=== PATIENT | male | born 1955 | race Caucasian/White ===

== ENCOUNTER 2016-10-03 02:39 | Emergency (ER) | payer MEDICARE, MEDICAID ==
[~2016-10-03] VITALS: Ht 177.8 cm; Wt 113.4 kg
[~2016-10-03 02:39] MED LIST: ASP325T; ASPI-892 PO; CARV12.5 PO; COREG PO; DCS100C PO; LISI5TAB PO; MULT1CAP27 PO; NIACIN PO; PRAV40TA PO; PRAV80TA2 PO; [UNRECOGNIZED DRUG - REMARK]
--- OUTSIDE RECORDS SUMMARY | 2016-10-03 02:48 | XMS REPORT ---
Author Author OFELIA MONTIEL Organization [employer] Address Unknown Phone Unavailable Care Team Providers Care Pediatric Nurse Name Role Phone OFELIA MONTIEL CP Unavailable Allergies No Known Allergies Problems Problem Type Condition Code Onset Dates Condition Status Problem Atherosclerotic heart disease of [place] coronary artery without angina pectoris I25.10 Active Problem Hyperlipidemia, unspecified E78.5 Active Problem Nicotine dependence F17.200 Active Medications Medication Code System Code Instructions Start Date End Date Status Dosage Lisinopril [facility][NOTE 3] [address]-84 5 MG Orally Once a day 1 tablet Pravastatin Sodium [facility][NOTE 3] 45758600626 40MG Orally Once a day TAKE ONE TABLET BY MOUTH AT BEDTIME Carvedilol [facility][NOTE 3] [address]-32 12.5 MG Orally 2 times a day . Results No Known Results Summary Purpose [employer] Submission
[2016-10-03] MEDS ORDERED: ASPIRIN 81 MG CHEW (CHILDREN'S ASA) PO ONE (03:00)
[2016-10-03 03:38] LABS: BASOPHILS % (AUTO) 0 % (0-10); EOSINOPHILS # (AUTO) 0.4 10^3/uL (0.0-0.3); EOSINOPHILS % (AUTO) 5 % (0-10); LYMPHOCYTES # (AUTO) 2.8 X 10^3 (1.0-4.0); LYMPHOCYTES % (AUTO) 41 % (12-44); MEAN CORPUSCULAR HEMOGLOBIN 31 PG (25-34); MEAN CORPUSCULAR HGB CONC 35 G/DL (32-36); MEAN CORPUSCULAR VOLUME 89 FL (80-99); MEAN PLATELET VOLUME 10.2 FL (7.4-10.4); MONOCYTES % (AUTO) 14 % (0-12); NEUTROPHILS # (AUTO) 2.8 X 10^3 (1.8-7.8); NEUTROPHILS % (AUTO) 40 % (42-75); PLATELET COUNT 198 10^3/uL (130-400); RED BLOOD COUNT 5.06 10^6/uL (4.35-5.85); RED CELL DISTRIBUTION WIDTH 13.4 % (10.0-14.5)
[2016-10-03 03:54] LABS: PROTHROMBIN TIME PATIENT 13.1 SEC (12.2-14.7)
[2016-10-03 04:08] LABS: ALANINE AMINOTRANSFERASE 27 U/L (0-55); ALBUMIN 4.3 G/DL (3.2-4.5); AMYLASE 46 U/L (25-125); ANION GAP 12 MMOL/L (5-14); ASPARTATE AMINO TRANSFERASE 21 U/L (5-34); BILIRUBIN,TOTAL 0.5 MG/DL (0.1-1.0); BLOOD UREA NITROGEN 13 MG/DL (7-18); BUN/CREATININE RATIO 15; CALCIUM 9.2 MG/DL (8.5-10.1); CARBON DIOXIDE 20 MMOL/L (21-32); CHLORIDE 107 MMOL/L (98-107); CREATINE KINASE 90 U/L (30-200); CREATININE SERUM 0.85 MG/DL (0.60-1.30); GFR ESTIMATED > 60; GLUCOSE 102 MG/DL (70-105); LIPASE 29 U/L (8-78); MAGNESIUM 2.3 MG/DL (1.8-2.4); POTASSIUM 4.1 MMOL/L (3.6-5.0); SODIUM 139 MMOL/L (135-145); TOTAL PROTEIN 6.9 G/DL (6.4-8.2)
[2016-10-03 04:19] LABS: TROPONIN I < 0.30 NG/ML (<0.30)
--- NOTE | 2016-10-03 04:31 | ED Chest Pain ---
General Chief Complaint: Chest Pain Stated Complaint: PT FELT SHARP PAINS IN CHEST @ MIDNIGHT Nursing Triage Note: PT C/O SHARP CHEST PAIN STARTING AT 2330 THAT CAME AND WENT. Nursing Sepsis Screen: No Definite Risk Source: patient History of Present Illness Time seen by provider: 03:10 Initial Comments PT ARRIVES VIA POV C/O SHARP CHEST PAIN IN MID CHEST--PAINS COME AND GO, ARE VERY SHARP AND LAST 1- 2 SECONDS. PAINS BEGAN AT 2330 TONIGHT NO SHORTNESS OF BREATH NO SWEATS NO PALPITATIONS NO DIZZINESS NO NAUSEA/VOMITING NO INCREASE IN CHRONIC SWELLING IN LEGS/ FEET AND NO PAIN IN CALVES PT STATES HE IS ON AN ANTIBIOTIC FOR DENTAL INFECTION DENIES ANY RECENT COUGH, ETC. PT HAS HAD DC AND CABG 8-10 YEARS AGO. STATES THIS PAIN IS NOT THE SAME WHEN HE HAD DC. PT STATES SOON HE ARRIVES THAT HE WILL NOT STAY OR BE TRANSFERRED ANYWHERE PCP: ALEX, ASYA MUÑOZDariel MONTIEL HAS NOT SEEN MANAGER DOMESTIC SINCE HE HAD HIS CABG 8-10 YEARS AGO. Allergies and Home Medications Allergies Coded Allergies: Penicillins (Verified Allergy, Unknown, 06/08/08) Home Medications Aspirin 81 Mg Tabec 81 MG PO DAILY (Reported) Carvedilol 12.5 Mg Tablet 12.5 MG PO BID (Reported) Docusate Sodium 100 Mg Capsule 100 MG PO DAILY (Reported) Lisinopril 5 Mg Tablet 5 MG PO DAILY (Reported) Multivitamins 1 Each Capsule 1 CAP PO DAILY (Reported) Pravastatin Sodium 40 Mg Tablet 40 MG PO DAILY (Reported) Review of Systems Constitutional: no symptoms reported EENTM: No Symptoms Reported Respiratory: No Symptoms Reported Cardiovascular: See HPI Chest Pain Edema Gastrointestinal: No Symptoms Reported Genitourinary: No Symptoms Reported Musculoskeletal: no symptoms reported Skin: no symptoms reported Psychiatric/Neurological: No Symptoms Reported Endocrine: No Symptoms Reported Hematologic/Lymphatic: No Symptoms Reported Past [id number]-[id number]-Lbbaxw Hx Patient Social History Alcohol Use: Denies Use Recreational Drug Use: No Smoking Status: Current Everyday Smoker (1-2 PPD) Type Used: Cigarettes Recent Foreign Travel: No Contact w/Someone Who Travel: No Recent Infectious Disease Expo: No Recent Hopitalizations: Yes Immunizations Up To Date Tetanus Booster (TDap): Unknown Surgeries HX Surgeries: Yes (SKIN GRAFT TO BURN SITE) Surgeries: Cardiac, CABG Respiratory Hx Respiratory Disorders: No Cardiovascular Hx Cardiac Disorders: Yes Cardiac Disorders: Chronic Edema/Swelling, Coronary Artery Disease, Heart Attack, Hypertension Neurological Hx Neurological Disorders: No Reproductive System Hx Reproductive Disorders: No Genitourinary Hx Genitourinary Disorders: Yes Genitourinary Disorders: Kidney Stones Gastrointestinal Hx Gastrointestinal Disorders: Yes (RIGHT INGUINAL HERNIA) Gastrointestinal Disorders: Chronic Constipation, Gall Bladder Disease Musculoskeletal Hx Musculoskeletal Disorders: No Endocrine Hx Endocrine Disorders: No HEENT HX ENT Disorders: No Cancer Hx Cancer: No Psychosocial Hx Psychiatric Problems: No Integumentary HX Skin/Integumentary Disorder: No Blood Transfusions Hx Blood Disorders: No Family Medical History Significant Family History: Heart Disease Physical Exam Vital Signs Vital Sign - Last 12Hours 10/03/16 10/03/16 03:14 03:15 Temp 97.8 Pulse 58 Resp 18 B/P 137/85 Pulse Ox 97 O2 Delivery Room Air Capillary Refill : Less Than 3 Seconds General Appearance: No Apparent Distress WD/WN Neck: Full Range of Motion Normal Inspection Non Tender SuppleNo Carotid Bruit , No JVD Respiratory: Chest Non Tender Normal Breath Sounds No Accessory Muscle Use No Respiratory Distress Cardiovascular: Regular Rate, Rhythm No JVD No Murmur Normal Peripheral Pulses Gastrointestinal: Normal Bowel Sounds No Organomegaly No Pulsatile Mass Non Tender Soft Extremity: Normal Capillary Refill Normal Range of Motion Non Tender No Calf Tenderness Pedal Edema (1+ BILATERALLY) Neurologic/Psychiatric: Alert Oriented x3 No Motor/Sensory Deficits Normal 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/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 Norm as Tested Skin: Normal Color Warm/Dry Progress/Results/Core Measures Results/Orders Lab Results Laboratory Tests Test 10/03/16 03:28 Range/Units Activated Partial Thromboplast Time 32 24-35 SEC Alanine Aminotransferase (ALT/SGPT) 27 0-55 U/L Albumin 4.3 3.2-4.5 G/DL Alkaline Phosphatase 69 40-136 U/L Amylase Level 46 25-125 U/L Anion Gap 12 5-14 MMOL/L Aspartate Amino Transf (AST/SGOT) 21 5-34 U/L B-Type Natriuretic Peptide 28.4 <100.0 PG/ML BUN/Creatinine Ratio 15 Basophils # (Auto) 0.0 0.0-0.1 10^3/uL Basophils (%) (Auto) 0 0-10 % Blood Urea Nitrogen 13 7-18 MG/DL Calcium Level 9.2 8.5-10.1 MG/DL Carbon Dioxide Level 20 L 21-32 MMOL/L Chloride Level 107 98-107 MMOL/L Creatine Kinase MB 2.6 <6.6 NG/ML Creatinine 0.85 0.60-1.30 MG/DL Eosinophils # (Auto) 0.4 H 0.0-0.3 10^3/uL Eosinophils (%) (Auto) 5 0-10 % Estimat Glomerular Filtration Rate > 60 Glucose Level 102 70-105 MG/DL Hematocrit 45 40-54 % Hemoglobin 15.7 13.3-17.7 G/DL INR Comment 1.0 0.8-1.4 Lipase 29 8-78 U/L Lymphocytes # (Auto) 2.8 1.0-4.0 X 10^3 Lymphocytes (%) (Auto) 41 12-44 % Magnesium Level 2.3 1.8-2.4 MG/DL Mean Corpuscular Hemoglobin 31 25-34 PG Mean Corpuscular Hemoglobin Concent 35 32-36 G/DL Mean Corpuscular Volume 89 80-99 FL Mean Platelet Volume 10.2 7.4-10.4 FL Monocytes # (Auto) 1.0 0.0-1.0 X 10^3 Monocytes (%) (Auto) 14 H 0-12 % Neutrophils # (Auto) 2.8 1.8-7.8 X 10^3 Neutrophils (%) (Auto) 40 L 42-75 % Platelet Count 198 130-400 10^3/uL Potassium Level 4.1 3.6-5.0 MMOL/L Prothrombin Time 13.1 12.2-14.7 SEC Red Blood Count 5.06 4.35-5.85 10^6/uL Red Cell Distribution Width 13.4 10.0-14.5 % Sodium Level 139 135-145 MMOL/L Total Bilirubin 0.5 0.1-1.0 MG/DL Total Creatine Kinase 90 30-200 U/L Total Protein 6.9 6.4-8.2 G/DL Troponin I < 0.30 <0.30 NG/ML White Blood Count 7.0 4.3-11.0 10^3/uL My Orders Orders-LINDA MCKEON DO Amylase (10/03/16 02:52) Cbc With Automated Diff (10/03/16 02:52) Comprehensive Metabolic Panel (10/03/16 02:52) Creatine Kinase (10/03/16 02:52) Creatine Kinase Mb (10/03/16 02:52) Lipase (10/03/16 02:52) Partial Thromboplastin Time (10/03/16 02:52) Protime With Inr (10/03/16 02:52) Troponin I (10/03/16 02:52) Chest 1 View, Ap/Pa Only (10/03/16 02:52) O2 (10/03/16 02:52) Ekg Tracing (10/03/16 02:52) Aspirin Chewable Tablet (Baby Aspirin Ch (10/03/16 03:00) BNP (10/03/16 02:52) Monitor-Rhythm Ecg Trace Only (10/03/16 02:52) Magnesium (10/03/16 02:52) Medications Given in ED Vital Signs/I&O Vital Sign - Last 12Hours 10/03/16 10/03/16 10/03/16 10/03/16 03:14 03:15 03:15 04:41 Temp 97.8 97.4 Pulse 58 68 Resp 18 16 B/P 137/85 Pulse Ox 97 96 98 O2 Delivery Room Air Room Air Room Air Blood Pressure Mean: 102 Progress Note : Progress Note HAD SEVERAL SHARP BRIEF STABS OF PAIN, EACH LASTED LITERALLY A SECOND PT ADAMANTLY REFUSES ADMIT. AMA PAPERS SIGNED ECG Initial ECG Impression Time: 03:15 Initial ECG Rate: 56 Initial ECG Rhythm: Normal Sinus Initial ECG Impression: Nonspecific Changes Initial ECG Comparisson: Unchanged Diagnostic Imaging Comments CXR--NO ACUTE PROCESS, PENDING RADIOLOGIST REVIEW Reviewed: Reviewed by Me Departure Impression Impression: Primary Impression: Chest pain Additional Impression: Hx of coronary artery disease Disposition: 07 AGAINST MEDICAL ADVICE Condition: Against Medical Advice Departure-Patient Inst. Referrals: [facility] (PCP) Primary Care Physician OFELIA MONTIEL (Family) Primary Care Physician Patient Instructions: Chest Pain (DC) Add. Discharge Instructions: [facility] UP [facility] TODAY OR TOMORROW FOR FURTHER CARE RETURN TO ER IF SYMPTOMS RETURN All discharge instructions reviewed with patient and/or family. Voiced understanding. LINDA MCKEON DO Oct 03, 2016 04:31
[2016-10-03 04:41] VITALS: BP 133/80
--- NOTE | 2016-10-03 06:34 | Diagnostic Imaging Report ---
INDICATION: Chest pain. Portable chest 3:23 AM FINDINGS: There are postop changes from CABG surgery. Heart size and pulmonary vascularity are normal. Lungs are clear. There are no effusions or pneumothoraces. IMPRESSION: Negative chest. Dictated by: Dictated on workstation # [id number]
== END 2016-10-03 04:41 | disposition left against medical advice (07) ==
LOC: EDUNIT# 02:39 → ER 02:45
DX: R07.9 Chest pain, unspecified (principal); I25.2 Old myocardial infarction; I10 Essential (primary) hypertension; F17.210 Nicotine dependence, cigarettes, uncomplicated; Z79.82 Long term (current) use of aspirin; Z79.899 Other long term (current) drug therapy; Z95.1 Presence of aortocoronary bypass graft
CPT/HCPCS: 36415; 71010; 80053; 82150; 82550; 82553; 83690; 83735; 83880; 84484; 85025; 85610; 85730; 93005; 93041